=== PATIENT | female | born 1980 | race African-American/Black ===

== ENCOUNTER 2019-10-08 19:47 | Day surgery (SDC) ==
[2019-10-08] MEDS ORDERED: ASPIRIN PO ONE (20:02)
[2019-10-08] MEDS ORDERED: NITROGLYCERIN TOP ONE (20:07)
[2019-10-08 20:16] LABS: BASO# 0.06 X1000 (0.0-0.2); BASO% 0.6 % (0.0-0.8); EOS# 0.17 X1000 (0.0-0.7); EOS% 1.7 % (0.0-10.0); HEMATOCRIT 43.3 % (37.0-47.0); HEMOGLOBIN 14.4 g/dL (12.0-16.0); IMM GRAN# 0.02 X1000 (0.0-0.04); IMM GRAN% 0.2 % (0.0-0.5); LYMPH# 3.03 X1000 (1.2-3.4); LYMPH% 30.1 % (20.5-51.1); MCH 26.4 PG (27-31); MCHC 33.3 g/dL (33-37); MCV 79.3 FL (81-99); MONO% 9.9 % (1.7-9.3); MPV 9.9 FL (7.4-10.4); NEUT# 5.79 X1000 (1.4-6.5); NEUT% 57.5 % (42.2-75.2); PLT 283 X1000 (130-400); RBC 5.46 XMIL (4.2-5.4); RDW 17.5 % (11.5-14.5); WBC 10.07 X1000 (4.8-10.8)
[2019-10-08 20:32] LABS: AGAP 14; ALBUMIN 4.4 g/dL (3.5-5.0); ALKALINE PHOSPHATASE 117 U/L (32-104); BUN 10 mg/dL (8-22); CALCIUM 9.5 mg/dL (8.8-10.2); CHLORIDE 101 mmol/L (98-107); COSMO 279; CREATININE 0.6 mg/dL (0.5-0.9); ESTIMATED GFR > 60; GLUCOSE 104 mg/dL (70-104); GOT 40 U/L (10-30); GPT 16 U/L (10-36); POTASSIUM 3.6 mmol/L (3.5-5.1); SODIUM 140 mmol/L (136-145); TCO2 25 mmol/L (25-35); TOTAL PROTEIN 7.2 g/dL (6.3-8.3)
--- NOTE | 2019-10-08 20:39 | PROVIDER DOCUMENTATION ---
HPI-Chest Pain - General Chief Complaint: Chest Pain Stated Complaint: CHEST PAIN, SOB Time Seen by Provider: 10/08/19 19:52 Source: patient Allergies/Adverse Reactions: Patient Allergies Allergy/AdvReac Type Severity Reaction Status Date / Time penicillamine Allergy RASH Verified 10/08/19 19:56 Penicillins Allergy RASH Verified 10/08/19 19:56 Home Medications: Home Medication List Medication Instructions Recorded Confirmed Last Taken Type Losartan/Hctz [Hyzaar 100/12.5 mg 1 tab PO DAILY 10/08/19 10/08/19 Unknown History Tab] - History of Present Illness-CP Nature of Presenting Problem: 38 YOF WITH PMH OF HTN WHO REPORTS SHE HAS NOT BEEN TAKING HER MEDICATIONS PRESENTS WITH C/O CP THAT BEGAN SHARP AND 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 Location: reports: substernal Chest Pain Radiation: reports: arms (L) Quality of Pain: reports: pressure, sharp Severity in ED: moderate Onset/Duration: 1/2 hour ago Timing: still present Context/Activities at Onset: reports: none Modifying Factors: improves with: nothing Associated Symptoms: reports: back pain, nausea, shortness of breath Nitro Today/Relief: no nitro taken today Aspirin Treatment Today: 325 mg x 1, provided by ED Prior Chest Pain/Cardiac Workup: reports: no prior chest pain, no prior cardiac workup Similar Symptoms Previously?: No Recently Seen Here or By Another Healthcare Provider: No Review of Systems - Adult - REVIEW OF SYSTEMS - ADULT Constitutional: reports: no symptoms reported. denies: see HPI, chills, fever, fatique, night sweats, weight gain, weight loss, other Eyes: reports: no symptoms reported. denies: see HPI, discharge, dry eyes, decreased vision, blurred vision, double vision, eye pain, redness, other Ears, Nose, Mouth & Throat: reports: no symptoms reported. denies: see HPI, ear discharge, ear pain, hearing loss, tinnitus, epistaxis, sinus problem, nose pain, loose teeth, mouth/dental pain, mouth swelling, hoarseness, throat pain, throat swelling, other Cardiovascular: reports: chest pain. denies: no symptoms reported, see HPI, edema, heart murmur, irregular heart rate, orthopnea, palpitations, poor circulation, PND, syncope, other Respiratory: reports: shortness of breath. denies: no symptoms reported, see HPI, chronic cough, cough, dyspnea on exertion, excessive sputum production, hemoptysis, pleurisy, wheezing, other Gastrointestinal: reports: nausea. denies: no symptoms reported, see HPI, abdominal pain, hematemesis, constipation, diarrhea, difficulty swallowing, frequent heartburn, poor appetite, rectal bleeding, vomiting, other Genitourinary: reports: no symptoms reported. denies: see HPI, dysuria, discharge, frequency, flank pain, frequent UTI's, hematuria, hesitency, incontinence, urinary retention, urgency, other Musculoskeletal: reports: no symptoms reported. denies: see HPI, bone pain, rosette k pain, frequent leg cramps, joint pain, joint swelling, muscle aches, muscle weakness, neck pain, other Integumentary: reports: no symptoms reported. denies: see HPI, hives, hair loss, itching, mole changes, nail changes, rash, skin sores/ulcer, skin thickening, other Neurological: reports: no symptoms reported. denies: see HPI, ataxia, dizzines s/vertigo, headache/migraines, loss of balance, numbness, paresthesia, seizure, slurred speech, syncope, tremors, other Psychiatric: reports: no symptoms reported. denies: see HPI, anxiety, anti- depressant use, alcohol/drug dependence, depression, emotional problems, insomn ia, panic attacks, suicidal thoughts, other Endocrine: reports: no symptoms reported. denies: see HPI, change in skin pigment, excessive sweating, goiter, cold intolerance, heat intolerance, increased hunger, increased thirst, polyuria, other Hematologic/Lymphatic: reports: no symptoms reported. denies: see HPI, blood clots, easy bruising, low blood count, lymphedema, prolonged bleeding, swollen lymph nodes, transfusions, other Allergic/Immunologic: reports: no symptoms reported. denies: see HPI, allergic reactions, allergic rhinitis, asthma, eczema, food allergy, frequent infections, hay fever, hives, positive PPD, urticaria, other Past History - Adult - PAST MEDICAL HISTORY-ADULT Review of Records: reports: Nursing Assessment Review, Social history reviewed & non-contributory. Major Childhood Illnesses: reports: denies history Cardiovascular: reports: HTN Respiratory: reports: denies history Gastrointestinal: reports: denies history Obstetrical/Gynecological: reports: denies history Genitourinary: reports: denies history Musculoskeletal: reports: denies history Neurological: reports: denies history Psychiatric: reports: denies history Endocrine/Immune: reports: denies history Other Conditions: reports: denies history - PRIOR SURGERIES/PROCEDURES Surgical/Procedure History: reports: reviewed, not pertinent, BTL, tonsillectomy , other (Gastric Bypass) - IMMUNIZATION STATUS Childhood Immunizations: See Nurse Assessment Flu Vaccine: See Nurse Assessment - FAMILY HISTORY Family History: reviewed, not pertinent Physical Exam-General - PHYSICAL EXAM-ADULT Initial Vital Signs Reviewed: Yes - CONSTITUTIONAL General Appearance: alert, mild distress - EYES Eyes: PERRL/EOMI, pink conjunctivae - HEAD, EARS, NOSE, MOUTH & THROAT HENMT: normocephalic/atraumatic, moist mucous membranes, normal ENT inspection - NECK Neck: non-tender, full range of motion, supple - RESPIRATORY Respiratory: chest non-tender, lungs clear, normal breath sounds, no pleuratic chest pain, no respiratory distress, no accessory muscle use, increased rate - CARDIOVASCULAR Cardiovascular: normal peripheral pulses, regular rate, rhythm, no edema, no gallop, no JVD, no murmur - GASTROINTESTINAL (ABDOMEN) Abdominal Exam: normal bowel sounds, non tender, soft - LYMPHATIC Lymphatic: no adenopathy - MUSCULOSKELETAL Back Exam: normal inspection, no CVA tenderness, no vertebral tenderness Extremity: normal range of motion, non-tender, normal gait - SKIN Integumentary: normal color, normal turgor, warm/dry - NEUROLOGIC Neurologic: grossly normal - PSYCHIATRIC Psych/Mental Status: normal mood/affect, oriented x 3 - HEART Score HEART Score: History: Moderately Suspicious HEART Score: ECG: Normal HEART Score: Age: < or = 45 Years HEART Score: Risk Factors for Atherosclerotic Disease: 1 or 2 Risk Factors HEART Score: Troponin: < or = Normal Limit Total HEART Score:: 2 Progress - PLAN OF CARE/RESULTS Progress/Plan/Lab Results: Vital Signs - 8 hr 10/08/19 19:51 10/08/19 21:13 Temperature 97.9 F Pulse Rate 90 89 Respiratory Rate 20 13 Blood Pressure 177/110 176/115 O2 Sat by Pulse Oximetry 98 100 Bedside Urine ED: Urine Bedside Start: 10/08/19 21:09 Freq: Status: Active Protocol: Activity Type Activity Date Activity User E-Sign Co-Sign Detail Recorded Client Recorded Date Recorded By Document 10/08/19 21:09 [id number] 10/08/19 21:09 [id number] 10/08/19 21:09 Point of Care [Bedside Point of Care] -Lot # [id number] - Results Negative -Control Line Visible? Yes Laboratory Results - last 24 hr 10/08/19 10/08/19 10/08/19 20:09 20:09 20:09 WBC RBC Hgb Hct MCV MCH MCHC RDW Std Deviation Plt Count MPV Immature Gran % (Auto) Neut % (Auto) Lymph % (Auto) Sutton % (Auto) Eos % (Auto) Baso % (Auto) Immature Gran # (Auto) Neut # (Auto) Lymph # (Auto) Sutton # (Auto) Eos # (Auto) Baso # (Auto) D-Dimer, Quantitative < 0.27 Sodium Potassium Chloride Carbon Dioxide Anion Gap BUN Creatinine Estimated GFR/1.73 m2 BUN/Creatinine Ratio Glucose Calculated Osmolality Calcium Total Bilirubin AST ALT Alkaline Phosphatase Creatine Kinase 115 Troponin T < 0.010 Ipj-[id number]-Mgxqexjvdpy Pept Total Protein Albumin Globulin Albumin/Globulin Ratio 10/08/19 10/08/19 10/08/19 20:09 20:09 20:09 WBC 10.07 RBC 5.46 H Hgb 14.4 Hct 43.3 MCV 79.3 L MCH 26.4 L MCHC 33.3 RDW Std Deviation 17.5 H Plt Count 283 MPV 9.9 Immature Gran % (Auto) 0.2 Neut % (Auto) 57.5 Lymph % (Auto) 30.1 Sutton % (Auto) 9.9 H Eos % (Auto) 1.7 Baso % (Auto) 0.6 Immature Gran # (Auto) 0.02 Neut # (Auto) 5.79 Lymph # (Auto) 3.03 Sutton # (Auto) 1.00 H Eos # (Auto) 0.17 Baso # (Auto) 0.06 D-Dimer, Quantitative Sodium 140 Potassium 3.6 Chloride 101 Carbon Dioxide 25 Anion Gap 14 BUN 10 Creatinine 0.6 Estimated GFR/1.73 m2 > 60 BUN/Creatinine Ratio 17 Glucose 104 Calculated Osmolality 279 Calcium 9.5 Total Bilirubin 0.20 AST 40 H ALT 16 Alkaline Phosphatase 117 H Creatine Kinase Troponin T [id number]-D-Kjykzxsaiqm Pept 80 Total Protein 7.2 Albumin 4.4 Globulin 3.0 Albumin/Globulin Ratio 2.0 10/08/19 20:09 WBC RBC Hgb Hct MCV MCH MCHC RDW Std Deviation Plt Count MPV Immature Gran % (Auto) Neut % (Auto) Lymph % (Auto) Sutton % (Auto) Eos % (Auto) Baso % (Auto) Immature Gran # (Auto) Neut # (Auto) Lymph # (Auto) Sutton # (Auto) Eos # (Auto) Baso # (Auto) D-Dimer, Quantitative Sodium Potassium Chloride Carbon Dioxide Anion Gap BUN Creatinine Estimated GFR/1.73 m2 BUN/Creatinine Ratio Glucose Calculated Osmolality Calcium Total Bilirubin AST ALT Alkaline Phosphatase Creatine Kinase Troponin T 0.017 D Bgq-Q-Afewehrgvix Pept Total Protein Albumin Globulin Albumin/Globulin Ratio Orders Category Date Time Status If abnormal EKG, order: NOW Care 10/08/19 20:00 Active CHEST-2 VIEWS [RAD] Stat Exams 10/08/19 20:[address] HEAD W/O CONTRAST [CT] Stat Exams 10/08/19 21:25 Completed BNP [PRO B-NATRIURETIC PEPTIDE] Stat Lab 10/08/19 20:09 Completed CBC WITH ELECTRONIC DIFF [HEME] Stat Lab 10/08/19 20:09 Completed CK PROFILE [SP CHEM] Stat Lab 10/08/19 20:09 Completed COMPREHENSIVE METABOLIC PANEL [CHEM] Stat Lab 10/08/19 20:09 Completed D-DIMER [COAG] Stat Lab 10/08/19 20:09 Completed TROPONIN T Stat Lab 10/08/19 20:09 Completed TROPONIN T Stat Lab 10/08/19 20:09 Completed TROPONIN T Stat Lab 10/08/19 22:37 Uncollected Aspirin Med 10/08/19 20:02 Discontinued 325 mg PO NOW ONE Clonidine [Catapres] Med 10/08/19 21:30 Discontinued 0.1 mg PO NOW ONE Nitroglycerin Med 10/08/19 20:07 Discontinued 0.5 inch TOP NOW ONE CP/Palp <45 No Known Cardiac Hx Stat Oth 10/08/19 19:59 Ordered EKG [EKG] Stat Ther 10/08/19 19:53 Ordered EKG [EKG] Stat Ther 10/08/19 21:50 Ordered OF NOTE PATIENT HAS A FAMILY HX OF EARLY HEART DISEASE, BROTHER HAD WY AT 39 AND FATHER AT 41 Result Diagrams: 10/08/19 20:09 10/08/19 20:09 - REASSESSMENT Reassessment #1 Time Reassessed: 21:35 (PAIN HAS IMPROVED ) Status: improving - EKG 1 Time of EKG reading by physician:: 20:01 EKG Read and Signed by:: Dillan Boothe EKG Interpretation (*Must complete 3 of following elements*): Normal Rate: 92 Rhythm: NSR Commerce: normal QRS: normal NM Interval: normal ST Wave: normal Prior EKG Comparison: changes noted 2 Time of EKG reading by physician:: 22:06 EKG Read and Signed by:: Dillan Boothe EKG Interpretation (*Must complete 3 of following elements*): Normal Rate: 86 Rhythm: NSR Commerce: normal QRS: normal NM Interval: normal ST Wave: normal Prior EKG Comparison: unchanged from prior - XRAY 1 XRAY Study: Chest Impression: See EMR Report (EXAM: CHEST-2 VIEWS HISTORY: chest pain TECHNIQUE: Two views COMPARISON: 06/20/2018 FINDINGS: The lungs are well expanded. The heart is not enlarged. The vessels are not distended. There are no infiltrates. No pleural effusions. IMPRESSION: No acute abnormality. 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 FINDINGS: No parenchymal hemorrhage. No epidural or subdural hematoma. No subarachnoid hemorrhage. No mass identified on this noncontrasted exam. No hydrocephalus. No sinus opacification. IMPRESSION: No hemorrhage. Negative brain CT without contrast. This exam was performed using automated exposure control, adjustment of mA or kV according to patient size, and/or use of iterative reconstruction technique. Electronically signed by Angelo Monaco 10/08/2019 10:03 PM 10/08/192202 Interpreting Physician: Angelo Monaco MD Dictated Date/Time: 10/08/192201 cc: Chantelle Correa; Tino Gray MD) - CONSULTS/PCP/HOSPITALIST Notification #1 *Consult/PCP/Hospitalist*: DR BE Time Discussed: 22:39 Consult Disposition: Admit (CHEST PAIN R/O STRESS TEST, HYDRALIZINE PRN BP) Departure - Departure Date of Disposition Decision: 10/08/19 Time of Disposition Decision: 22:38 DIAGNOSIS: Chest pain, Uncontrolled hypertension, Medical non-compliance Disposition: ADMITTED INPATIENT 09 Certified Medical Emergency: Emergent Condition: Stable Referrals and Follow-Ups: Tino Gray MD [Primary Care Provider] - Work Excuses: Return to School/Parent Work Discharge Education: Steps to Quit Smoking, [id number] - Critical Care Note This patient required my direct & personal management of CC.: No Attestation - Physician/ YOUSIF Attestation Patient care was provided by Advanced Practice Provider:: Yes Advanced Practice Provider:: Chantelle Correa Advanced Practice Provider documentation review:: The Mid-level provider documentation, treatment plan and medical decision making was reviewed by the physician who agrees with all treatment and medical decision making by the MLP. The physician spent face to face time with patient:: No Advanced Practice Provider documentation review:: Supervising physician onsite and consulted in the evaluation and care of this patient. The physician did not have a face to face encounter with the patient.
[2019-10-08] MEDS ORDERED: CATAPRES PO ONE (21:30)
--- NOTE | 2019-10-08 21:32 | Diag Imaging Result Doc PS360 ---
EXAM: CHEST-2 VIEWS HISTORY: chest pain TECHNIQUE: Two views COMPARISON: 06/20/2018 FINDINGS: The lungs are well expanded. The heart is not enlarged. The vessels are not distended. There are no infiltrates. No pleural effusions. IMPRESSION: No acute abnormality. Electronically signed by Angelo Monaco 10/08/2019 9:29 PM
--- NOTE | 2019-10-08 22:05 | Diag Imaging Result Doc PS360 ---
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 FINDINGS: No parenchymal hemorrhage. No epidural or subdural hematoma. No subarachnoid hemorrhage. No mass identified on this noncontrasted exam. No hydrocephalus. No sinus opacification. IMPRESSION: No hemorrhage. Negative brain CT without contrast. This exam was performed using automated exposure control, adjustment of mA or kV according to patient size, and/or use of iterative reconstruction technique. Electronically signed by Angelo Monaco 10/08/2019 10:03 PM
[2019-10-08] MEDS ORDERED: APRESOLINE IV PRN (23:15)
--- NOTE | 2019-10-09 03:07 | EKG Report ---
Test Performed on : 10/08/2019 8:01:33 PM Test Reason : CHEST PAIN Blood Pressure : / mmHG Vent. Rate : 092 BPM Atrial Rate : 092 BPM P-R Int : 134 ms QRS Dur : 090 ms QT Int : 384 ms P-R-T Axes : 053 005 022 degrees QTc Int : 474 ms Normal sinus rhythm. Normal ECG When compared with ECG of 20-JUN-2018 00:14, QT has lengthened Unconfirmed Result
--- NOTE | 2019-10-09 03:09 | EKG Report ---
Test Performed on : 10/08/2019 10:05:54 PM Test Reason : CP Blood Pressure : / mmHG Vent. Rate : 086 BPM Atrial Rate : 086 BPM P-R Int : 138 ms QRS Dur : 082 ms QT Int : 400 ms P-R-T Axes : 037 008 022 degrees QTc Int : 478 ms Normal sinus rhythm. Normal ECG When compared with ECG of 08-OCT-2019 20:01, (Unconfirmed) No significant change was found Unconfirmed Result
[2019-10-09 08:04] VITALS: BP 149/97
--- NOTE | 2019-10-09 10:12 | HISTORY AND PHYSICAL ---
PRIMARY CARE PHYSICIAN: Dr. Tino Gray. CHIEF COMPLAINT: Chest pain that radiated down her left arm, with some associated shortness of breath, nausea, and sweating. HISTORY OF PRESENTING ILLNESS: This is a 38-year-old female who presents to [facility] ER with complaints of chest pain that she described as sharp, and then became more like a pressure, sitting in the middle of her chest, that began about 30 minutes prior to arriving. States the pain radiated down her left arm, with numbness and tingling in her hand. Also had some associated shortness of breath, nausea, and diaphoresis. States that she had not been taking her blood pressure medication for about 2 weeks, simply because she just would forget to take it she said. When she arrived, she had a blood pressure of 177/110. Cardiac enzymes x5 sets have been negative. Her EKG on arrival showed normal sinus rhythm at 92. She was given a half an inch of nitroglycerin topically, Catapres 0.1 mg p.o. x1, and an aspirin 325 mg p.o. x1 in the emergency room. Currently, her blood pressure is down to 149/97, so she is being admitted for further evaluation and treatment. PAST MEDICAL HISTORY: Hypertension. PAST SURGICAL HISTORY: Gastric bypass, bilateral tubal ligation, tonsillectomy. FAMILY HISTORY: Reviewed and noncontributory. SOCIAL HISTORY: She is currently a half a pack a day smoker, and has done so for the past 10+ years. Uses alcohol socially only, and denied any illicit drug use. ALLERGIES: Penicillin and penicillamine. HOME MEDICATIONS: She takes losartan/hydrochlorothiazide 100/12.5 one p.o. daily. IMAGING AND LABORATORY DATA: Laboratory data showed a white blood cell count of 10.07, hemoglobin 14.4, hematocrit 43.3, platelets 283,000. D-dimer of less than 0.27. Sodium 140, potassium 3.6, chloride 101, CO2 of 25, BUN of 10, creatinine 0.6, glucose 104. Cardiac enzymes x5 sets were negative. EKG showed normal sinus rhythm at 92. Chest x-ray showed no acute abnormality. Head CT showed no hemorrhage, and a negative brain CT without contrast. REVIEW OF SYSTEMS: She denied any fever, chills, blurred vision, dizziness. She was positive for chest pain, substernal, that radiated to her left arm and down to her hand with tingling, shortness of breath, diaphoresis. Denied any cough, abdominal pain, constipation, diarrhea, or burning or hurting with urination. PHYSICAL EXAMINATION: VITAL SIGNS: On arrival, she had a temperature of 97.9 degrees, pulse 90, respirations 20, blood pressure 177/110, saturating 98% on room air. GENERAL: This is a 38-year-old female who is lying in the bed. Answers questions appropriately. HEENT: Normocephalic, atraumatic. Normal ENT inspection. Oropharynx and nares are clear. Eyes: Pupils are equal, round, reactive to light and accommodation. Extraocular movements are intact. NECK: Normal inspection. Normal range of motion. LUNGS: Clear to auscultation bilaterally with equal lung expansion and chest wall movement. HEART: Regular rate and rhythm. No murmurs, rubs, or gallops. ABDOMEN: Soft, nontender, nondistended. Bowel sounds are present x4 quadrants. MUSCULOSKELETAL: She had 5/5 strength x4 extremities. NEUROLOGICAL: The cranial nerves II through XII appear grossly intact. ASSESSMENT: 1. Chest pain. 2. Hypertension, uncontrolled. 3. Medical noncompliance. PLAN: She was admitted to the medical unit, placed on telemetry, held n.p.o. for a myocardial perfusion scan today. She will continue her home medication. She has hydralazine 10 mg IV every 6 hours p.r.n. for a systolic blood pressure greater than 180. Further orders after seen by attending. Dictated by EARLE Mendieta for Kem Vasquez MD cc: EARLE Mendieta MD Wayne E. Thomas, MD
--- NOTE | 2019-10-09 12:17 | EKG Report ---
Test Performed on : 10/09/2019 12:12:52 PM Test Reason : chest pain Blood Pressure : / mmHG Vent. Rate : 094 BPM Atrial Rate : 094 BPM P-R Int : 134 ms QRS Dur : 082 ms QT Int : 374 ms P-R-T Axes : 073 087 047 degrees QTc Int : 467 ms Normal sinus rhythm. Normal ECG When compared with ECG of 08-OCT-2019 22:05, (Unconfirmed) Questionable change in QRS axis Nonspecific T wave abnormality now evident in Lateral leads Confirmed by Dillan Boothe MD ([id number]) on 10/16/2019 1:50:15 AM
--- NOTE | 2019-10-09 12:57 | GRADED EXERCISE REPORT ---
DATE: 10/09/2019 ORDERING PHYSICIAN: Dr. Brenner. SUMMARY: Briefly, this is a 38-year-old with chest pain. Baseline EKG was nonspecific. She underwent GXT testing per modified Wicho protocol. She actually had fairly decent exercise tolerance. She did not reach her peak heart rate until the third interval. Her initial blood pressure 160/103, heart rate was 85. Her peak heart rate was 160, which is 88% max, peak blood pressure 180/110. She had some ST changes, but nothing specific and certainly nothing more than a millimeter. She had some ST changes in lead 3, aVR, V 5, but not consistent with ischemia. The test was felt to be clinically positive with mild chest pain increased during the test and then electrically negative. Myocardial perfusion reported separately. Patient tolerated procedure without difficulty. cc: Kem Vasquez MD
[2019-10-09] MEDS: COZAAR PO SCH ×2 (14:21→15:40)
[2019-10-09] MEDS: HYDROCHLOROTHIAZIDE PO SCH ×2 (14:22→15:40)
--- NOTE | 2019-10-09 14:38 | Diag Imaging Result Document ---
PROCEDURE NAME: MYOCARDIAL PERF SCAN, STR/REST - 10/09/2019 INDICATION FOR THE PROCEDURE: Chest pain. PROCEDURES PERFORMED: 1. Wicho protocol stress (results dictated separately by primary physician). 2. One-day stress rest myocardial perfusion imaging (rest dose of 14.8 mCi, stress dose of 41.9 mCi). PERFUSION IMAGING RESULTS: 1. Wicho protocol stress results dictated separately. 2. No evidence of abnormal extracardiac uptake. 3. TID ratio 0.86. PERFUSION IMAGIN. Demonstrates normal homogenous uptake of radiotracer throughout the myocardial segments. There is no evidence of stress-related defects. 2. Normal ejection fraction of 76%. End-diastolic volume 81, end-systolic volume 19. Normal wall motion. cc: MD Belkis Dubois CRNP
[2019-10-09] MEDS ORDERED: FLU VACCINE IM ONE (15:28)
[2019-10-09] MEDS ORDERED: PNEUMOVAX 23 IM ONE (15:28)
--- NOTE | 2019-10-09 20:48 | DISCHARGE SUMMARY ---
ADMISSION DATE: 10/08/2019 DISCHARGE DATE: 10/09/2019 DISCHARGE DIAGNOSIS: Atypical chest pain. Briefly this is a 38-year-old female presenting with chest pain. She does have a history of hypertension. She was put in the hospital, had serial enzymes and improved. Her blood pressure also improved, which may have been a major instigator against her hypertension. Her cardiac enzymes were negative. No significant arrhythmia. Her myocardial perfusion reported no significant stress related defects. EF was 76%. Her EKG portion also was not significant. The patient was discharged in stable condition on her losartan 100/12.5 daily and follow up with her PCP who is Tino Gray. 32 minute discharge. cc: Kem Vasquez MD
== END 2019-10-09 16:15 | disposition home or self-care (01) ==
LOC: P.MEDSURG 19:47 → P.ED 19:47 → SUATTDRO 23:05 → OPS 23:05
PROVIDERS: ATTEND Family Medicine